=== PATIENT | male | born 1940 | race Caucasian/White ===

== ENCOUNTER 2023-07-20 12:30 | Inpatient (IN) | payer MEDICARE ==
[~2023-07-20] VITALS: Ht 170.2 cm; Wt 58.1 kg
[2023-07-20 13:24] LABS: BASOPHILS % (AUTO) 0.2 % (0.0-2.0); EOSINOPHILS # (AUTO) 0.1 K/uL (0.0-0.7); EOSINOPHILS % (AUTO) 0.7 % (0.0-6.0); HEMATOCRIT 30 % (39-51); HEMOGLOBIN 9.8 g/dL (13.5-17.5); LYMPHOCYTES # (AUTO) 1.1 K/uL (0.8-4.8); LYMPHOCYTES % (AUTO) 7.4 % (20.0-44.0); MEAN CORPUSCULAR HEMOGLOBIN 31 PG (26.0-33.0); MEAN CORPUSCULAR HGB CONC 33 g/dl (31.0-36.0); MEAN CORPUSCULAR VOLUME 92 fL (80-96); MONOCYTES # (AUTO) 0.5 K/uL (0.1-1.30); MONOCYTES % (AUTO) 3.7 % (2.0-12.0); NEUTROPHILS # (AUTO) 12.5 K/uL (1.8-8.9); PLATELET COUNT (AUTO) 321 K/uL (150-450); RED BLOOD CELL COUNT(AUTO) 3.21 MIL/uL (4.5-6.0); RED CELL DISTRIBUTION WIDTH 14.8 % (11.5-15.0); WHITE BLOOD COUNT (AUTO) 14.2 K/uL (4.3-11.0)
[2023-07-20 13:27] LABS: CALCIUM, SERUM 9.2 mg/dL (8.5-10.1); CARBON DIOXIDE 25 mmol/L (21-32); CHLORIDE 99 mmol/L (98-107); CREATININE 1.8 mg/dL (0.6-1.3); GLUCOSE 154 mg/dL (74-106); SODIUM SERUM 132 mmol/L (136-145); UREA NITROGEN, BLOOD 41 mg/dL (7-18)
[2023-07-20 13:33] LABS: ALANINE AMINOTRANSFERASE 173 U/L (12-78); ALBUMIN 2.1 g/dL (3.4-5.0); ALKALINE PHOSPHATASE 492 U/L (46-116); ASPARTATE AMINOTRANSFERASE 310 U/L (15-37); BILIRUBIN,TOTAL 0.7 mg/dL (0.2-1.0)
[2023-07-20 13:47] LABS: APPEARANCE,URINE CLEAR (CLEAR); BILIRUBIN,URINE NEGATIVE (NEGATIVE); BLOOD, URINE TRACE-INTA Ery/uL (NEGATIVE); COLOR,URINE YELLOW (YELLOW); KETONES,URINE NEGATIVE (NEGATIVE); LEUKOCYTE ESTERASE ,URINE NEGATIVE (NEGATIVE); NITRITE, URINE NEGATIVE (NEGATIVE); PH,URINE 5.5 (5.0-8.0); PROTEIN,URINE 1+ mg/dl (NEGATIVE); UGLUCOSE NEGATIVE (NEGATIVE)
[2023-07-20] MEDS ORDERED: TRUEPLUS GLUCOSE PO (13:47)
[2023-07-20] MEDS ORDERED: CITR473S4 PO (13:47)
[2023-07-20] MEDS ORDERED: ATOR40TA PO (13:47)
[2023-07-20] MEDS ORDERED: ACET-2605 PO ×2 (13:47)
[2023-07-20] MEDS ORDERED: LATA7.5D EACHEYE (13:47)
[2023-07-20] MEDS ORDERED: DOCU100T2 PO (13:47)
[2023-07-20] MEDS ORDERED: PANT40TA2 PO (13:47)
[2023-07-20] MEDS ORDERED: INSU100I26 SQ (13:47)
[2023-07-20] MEDS ORDERED: HEPA500014 SQ (13:47)
[2023-07-20] MEDS ORDERED: MAGN400O6 PO (13:47)
[2023-07-20] MEDS ORDERED: LINA5TAB PO (13:47)
[2023-07-20] MEDS ORDERED: NITR0.4T48 SL (13:47)
[2023-07-20] MEDS ORDERED: INSU100V42 SQ (13:47)
[2023-07-20] MEDS ORDERED: ONDA-97 PO (13:47)
[2023-07-20] MEDS ORDERED: SERT50TA PO (13:47)
[2023-07-20] MEDS ORDERED: ASCO-340 PO (13:47)
[2023-07-20] MEDS ORDERED: CRAN425C6 PO (13:47)
[2023-07-20] MEDS ORDERED: GLUC1KIT IM (13:47)
[2023-07-20] MEDS ORDERED: ASPI-1100 PO (13:47)
[2023-07-20] MEDS ORDERED: ACET-868 PO ×2 (13:47)
[2023-07-20] MEDS ORDERED: INSU100I47 SQ (13:47)
[2023-07-20] MEDS ORDERED: SEMA1PEN SQ (13:47)
[2023-07-20] MEDS ORDERED: METO25TA6 PO (13:47)
[2023-07-20] MEDS ORDERED: CHOL100043 PO (13:47)
[2023-07-20] MEDS ORDERED: NUT.237L67 PO (13:47)
[2023-07-20] MEDS ORDERED: MULT-447 PO (13:47)
[2023-07-20 13:50] LABS: ADD URINE CULTURE NO; BACTERIA,URINE Rare /HPF (None Seen); RBC,URINE 0-2 /HPF (0-2); SQUAMOUS EPITHELIAL CELL,UR Rare /HPF (None Seen); WBC,URINE 0-2 /HPF (0-3)
[2023-07-20] MEDS: PIPERACILLIN /TAZOBACTAM 3.375 G in IV D5W 50 ML IV ONE (15:00)
[2023-07-20] MEDS: AZITHROMYCIN 500 MG in IV D5W 250 ML IV ONE (15:00)
[2023-07-20] MEDS: VANCOMYCIN 1 GM in IV D5W 250 ML IV ONE (15:00)
[2023-07-20] MEDS ORDERED: MAG HYDROX/AL HYDROX/SIMETH 30 ML UDC PO PRN (15:30)
[2023-07-20] MEDS ORDERED: ACETAMINOPHEN 325 MG TABLET PO PRN (15:30)
[2023-07-20] MEDS ORDERED: Z GUARD REMEDY 4 OZ OINT TP PRN (15:30)
[2023-07-20] MEDS ORDERED: ONDANSETRON HCL/PF 4 MG/2 ML VIAL IVP PRN (15:30)
[2023-07-20] MEDS ORDERED: MAGNESIUM HYDROXIDE 30 ML UDC PO PRN (15:30)
[2023-07-20] MEDS ORDERED: DEXTROSE 50%-WATER 50 ML DISP.SYRIN IV PRN (16:00)
[2023-07-20] MEDS ORDERED: DOCUSATE SODIUM 100 MG CAPSULE PO PRN (16:30)
[2023-07-20] MEDS ORDERED: METOPROLOL TARTRATE 25 MG TABLET ONE ×3 (16:48→16:53)
[2023-07-20] MEDS: METOPROLOL TARTRATE 25 MG TABLET PO SCH (16:55)
[2023-07-20] MEDS: BLOOD SUGAR DIAGNOSTIC 1 EACH STRIP VI SCH (17:03)
[2023-07-20] MEDS: INSULIN REGULAR, HUMAN 100 UNIT/ML 3 ML VIAL SQ PRN (17:36)
[2023-07-20] MEDS: IV NS 0.9% 1,000 ML IV PRN (17:44)
[2023-07-20] MEDS: CEFEPIME 1 GM in IV D5W 50 ML IV SCH (19:34)
[2023-07-20] MEDS: HEPARIN SODIUM, PORCINE 5000 UNITS/1 ML VIAL SQ SCH (21:00)
[2023-07-20] MEDS: SERTRALINE HCL 50 MG TABLET PO SCH (21:56)
[2023-07-20] MEDS: INSULIN GLARGINE, 100 UNIT/ML CARTRIDGE SQ SCH (22:00)
[2023-07-21 04:00] VITALS: BP 136/49; TEMP 97.9; O2SAT 96
[2023-07-21 08:00] VITALS: BP 130/43; TEMP 98.1; O2SAT 98
[2023-07-21] MEDS: ASPIRIN EC 325 MG TABLET.DR PO SCH (09:00)
[2023-07-21] MEDS: PANTOPRAZOLE 40 MG TABLET.DR PO SCH (10:12)
[2023-07-21 16:00] VITALS: BP 133/75; TEMP 98.4; O2SAT 98
[2023-07-21 16:15] LABS: CREATININE, URINE 88.4 MG/DL (30.0-125.0); URINE TOTAL PROTEIN 65.8 mg/dL (0-11.9)
[2023-07-21 16:32] LABS: APPEARANCE,URINE CLEAR (CLEAR); BILIRUBIN,URINE NEGATIVE (NEGATIVE); BLOOD, URINE TRACE-INTA Ery/uL (NEGATIVE); COLOR,URINE YELLOW (YELLOW); KETONES,URINE TRACE mg/dL (NEGATIVE); LEUKOCYTE ESTERASE ,URINE NEGATIVE (NEGATIVE); NITRITE, URINE NEGATIVE (NEGATIVE); PH,URINE 5.5 (5.0-8.0); PROTEIN,URINE TRACE mg/dl (NEGATIVE); UGLUCOSE TRACE mg/dL (NEGATIVE); UROBILINOGEN,URINE 0.2 EU/dL (0.2)
[2023-07-21 16:53] LABS: RBC,URINE 0-2 /HPF (0-2)
[2023-07-21 16:54] LABS: ADD URINE CULTURE NO; BACTERIA,URINE Few /HPF (None Seen); SQUAMOUS EPITHELIAL CELL,UR Few /HPF (None Seen); WBC,URINE 0-2 /HPF (0-3)
[2023-07-21 16:55] LABS: EOSINOPHIL,URINE None Seen; URIC ACID CRYSTALS,URINE Moderate /HPF (None Seen)
[2023-07-21 20:00] VITALS: BP 126/42; TEMP 98.2; O2SAT 98
[2023-07-21] MEDS: *INSULIN REGULAR(HUMULIN R)HUM 100 UNIT/ML VIAL SQ PRN (21:44)
[2023-07-22] VITALS: BP 126/42; TEMP 98.2; O2SAT 98
[2023-07-22 04:00] VITALS: BP 94/67; TEMP 97.9; O2SAT 96
[2023-07-22 06:52] LABS: BASOPHILS % (AUTO) 0.3 % (0.0-2.0); EOSINOPHILS # (AUTO) 0.2 K/uL (0.0-0.7); EOSINOPHILS % (AUTO) 1.7 % (0.0-6.0); HEMATOCRIT 28 % (39-51); HEMOGLOBIN 9.2 g/dL (13.5-17.5); LYMPHOCYTES # (AUTO) 0.9 K/uL (0.8-4.8); LYMPHOCYTES % (AUTO) 8.2 % (20.0-44.0); MEAN CORPUSCULAR HEMOGLOBIN 31 PG (26.0-33.0); MEAN CORPUSCULAR HGB CONC 33 g/dl (31.0-36.0); MEAN CORPUSCULAR VOLUME 92 fL (80-96); MONOCYTES # (AUTO) 0.4 K/uL (0.1-1.30); MONOCYTES % (AUTO) 3.8 % (2.0-12.0); NEUTROPHILS # (AUTO) 9.5 K/uL (1.8-8.9); PLATELET COUNT (AUTO) 338 K/uL (150-450); RED BLOOD CELL COUNT(AUTO) 3.02 MIL/uL (4.5-6.0); RED CELL DISTRIBUTION WIDTH 14.4 % (11.5-15.0); WHITE BLOOD COUNT (AUTO) 11.1 K/uL (4.3-11.0)
[2023-07-22 06:58] LABS: ALANINE AMINOTRANSFERASE 107 U/L (12-78); ALBUMIN 1.7 g/dL (3.4-5.0); ALKALINE PHOSPHATASE 378 U/L (46-116); ASPARTATE AMINOTRANSFERASE 114 U/L (15-37); BILIRUBIN,TOTAL 0.4 mg/dL (0.2-1.0); CALCIUM, SERUM 8.5 mg/dL (8.5-10.1); CARBON DIOXIDE 23 mmol/L (21-32); CHLORIDE 103 mmol/L (98-107); CREATININE 1.4 mg/dL (0.6-1.3); GLUCOSE 148 mg/dL (74-106); MAGNESIUM 1.9 mg/dL (1.8-2.4); PHOSPHORUS 2.7 mg/dL (2.5-4.9); SODIUM SERUM 133 mmol/L (136-145); TOTAL PROTEIN, SERUM 6.6 g/dL (6.4-8.2); UREA NITROGEN, BLOOD 24 mg/dL (7-18)
[2023-07-22 07:01] LABS: ALBUMIN 1.7 g/dL (3.4-5.0); BILIRUBIN,DIRECT 0.2 mg/dL (0.0-0.2); BILIRUBIN,TOTAL 0.4 mg/dL (0.2-1.0); TOTAL PROTEIN, SERUM 6.8 g/dL (6.4-8.2)
[2023-07-22 07:02] LABS: CREATINE KINASE, TOTAL 88 U/L (39-308)
[2023-07-22 08:00] VITALS: BP 133/56; TEMP 98.1; O2SAT 99
[2023-07-22 16:00] VITALS: BP 140/57; TEMP 98.2; O2SAT 99
[2023-07-23 02:09] LABS: PTH, INTACT 18 pg/mL (15-65)
[2023-07-23 07:13] LABS: BASOPHILS % (AUTO) 0.4 % (0.0-2.0); EOSINOPHILS # (AUTO) 0.3 K/uL (0.0-0.7); EOSINOPHILS % (AUTO) 2.9 % (0.0-6.0); HEMATOCRIT 28 % (39-51); HEMOGLOBIN 9.6 g/dL (13.5-17.5); LYMPHOCYTES # (AUTO) 0.9 K/uL (0.8-4.8); LYMPHOCYTES % (AUTO) 9.2 % (20.0-44.0); MEAN CORPUSCULAR HEMOGLOBIN 32 PG (26.0-33.0); MEAN CORPUSCULAR HGB CONC 35 g/dl (31.0-36.0); MEAN CORPUSCULAR VOLUME 91 fL (80-96); MONOCYTES # (AUTO) 0.5 K/uL (0.1-1.30); NEUTROPHILS # (AUTO) 7.7 K/uL (1.8-8.9); NEUTROPHILS % (AUTO) 82.5 % (43.0-81.0); PLATELET COUNT (AUTO) 403 K/uL (150-450); RED BLOOD CELL COUNT(AUTO) 3.05 MIL/uL (4.5-6.0); RED CELL DISTRIBUTION WIDTH 14.3 % (11.5-15.0); WHITE BLOOD COUNT (AUTO) 9.4 K/uL (4.3-11.0)
[2023-07-23 07:34] LABS: CALCIUM, SERUM 8.9 mg/dL (8.5-10.1); CARBON DIOXIDE 23 mmol/L (21-32); CHLORIDE 102 mmol/L (98-107); CREATININE 1.5 mg/dL (0.6-1.3); GLUCOSE 130 mg/dL (74-106); POTASSIUM 3.9 mmol/L (3.5-5.1); SODIUM SERUM 134 mmol/L (136-145); UREA NITROGEN, BLOOD 21 mg/dL (7-18)
[2023-07-23 09:08] LABS: *SPE A/G RATIO 0.5 (0.7-1.7); *SPE ALPHA-1-GLOBULIN 0.4 g/dL (0.0-0.4); *SPE ALPHA-2-GLOBULIN 1.1 g/dL (0.4-1.0); *SPE GLOBULIN, TOTAL 3.9 g/dL (2.2-3.9); *SPE M-SPIKE 0.6 g/dL (Not Observed); *SPE PROTEIN TOTAL 5.9 g/dL (6.0-8.5); *SPEGAMMA GLOBULIN 1.4 g/dL (0.4-1.8)
[2023-07-23 20:00] VITALS: BP 109/52; TEMP 97.9; O2SAT 99
[2023-07-24 04:00] VITALS: BP 112/72; TEMP 97.9; O2SAT 100
[2023-07-24 08:00] VITALS: BP 117/60; TEMP 97.7; O2SAT 98
[2023-07-24 09:06] VITALS: BP 117/60
[2023-07-24] MEDS ORDERED: LEVO500T90 PO (10:09)
== END 2023-07-24 15:14 | DRG 177 ==
LOC: ER 12:35 → TELE1 17:44 → MEDSG1 07-21 03:59
PROVIDERS: ADMIT Internal Medicine; ATTEND Internal Medicine
DX: J15.69 Pneumonia due to other Gram-negative bacteria (principal); G93.41 Metabolic encephalopathy; N17.0 Acute kidney failure with tubular necrosis; E44.0 Moderate protein-calorie malnutrition; N18.4 Chronic kidney disease, stage 4 (severe); E87.1 Hypo-osmolality and hyponatremia; J98.11 Atelectasis; F03.93 Unspecified dementia, unspecified severity, with mood disturbance; I12.9 Hypertensive chronic kidney disease with stage 1 through stage 4 chronic kidney disease, or unspecified chronic kidney disease; D64.9 Anemia, unspecified; E78.5 Hyperlipidemia, unspecified; E86.1 Hypovolemia; E11.22 Type 2 diabetes mellitus with diabetic chronic kidney disease; K21.9 Gastro-esophageal reflux disease without esophagitis; M89.8X9 Other specified disorders of bone, unspecified site; E88.09 Other disorders of plasma-protein metabolism, not elsewhere classified; Z68.20 Body mass index [BMI] 20.0-20.9, adult; Z20.822 Contact with and (suspected) exposure to COVID-19; R74.01 Elevation of levels of liver transaminase levels; F32.9 Major depressive disorder, single episode, unspecified; K82.8 Other specified diseases of gallbladder; R79.89 Other specified abnormal findings of blood chemistry
CPT/HCPCS: 36415; 71045-TC; 76700-TC; 80048-TC; 80053-TC; 80076-TC; 81001; 82550-TC; 82570-TC; 82962-TC; 83735-TC; 83970; 84100-TC; 84155; 84165; 84300-TC; 85025-TC; A4223; G0378; J0692; J1644; J1815; J2543; J3370; J7030; J7060

== ENCOUNTER 2023-07-26 09:44 | Inpatient (IN) | payer MEDICARE ==
[~2023-07-26] VITALS: Ht 160 cm; Wt 61.2 kg
[~2023-07-26 09:44] MED LIST: ACET-2605 PO; ACET-868 PO; ASCO-340 PO; ASPI-1100 PO; ATOR40TA PO; CHOL100043 PO; CITR473S4 PO; CRAN425C6 PO; DOCU100T2 PO; GLUC1KIT IM; HEPA500014 SQ; INSU100I26 SQ; INSU100I47 SQ; INSU100V42 SQ; LATA7.5D EACHEYE; LEVO500T90 PO; LINA5TAB PO; MAGN400O6 PO; METO25TA6 PO; MULT-447 PO; NITR0.4T48 SL; NUT.237L67 PO; ONDA-97 PO; PANT40TA2 PO; SEMA1PEN SQ; SERT50TA PO; TRUEPLUS GLUCOSE PO
[2023-07-26 10:38] LABS: BASOPHILS # (AUTO) 0.1 K/uL (0.0-0.2); BASOPHILS % (AUTO) 1.1 % (0.0-2.0); EOSINOPHILS # (AUTO) 0.2 K/uL (0.0-0.7); HEMATOCRIT 29 % (39-51); HEMOGLOBIN 9.9 g/dL (13.5-17.5); LYMPHOCYTES # (AUTO) 1.4 K/uL (0.8-4.8); LYMPHOCYTES % (AUTO) 15.5 % (20.0-44.0); MEAN CORPUSCULAR HEMOGLOBIN 31 PG (26.0-33.0); MEAN CORPUSCULAR HGB CONC 34 g/dl (31.0-36.0); MEAN CORPUSCULAR VOLUME 90 fL (80-96); MONOCYTES # (AUTO) 0.5 K/uL (0.1-1.30); MONOCYTES % (AUTO) 5.2 % (2.0-12.0); NEUTROPHILS % (AUTO) 76.2 % (43.0-81.0); PLATELET COUNT (AUTO) 484 K/uL (150-450); RED BLOOD CELL COUNT(AUTO) 3.24 MIL/uL (4.5-6.0); RED CELL DISTRIBUTION WIDTH 14.7 % (11.5-15.0); WHITE BLOOD COUNT (AUTO) 9.2 K/uL (4.3-11.0)
[2023-07-26 10:42] LABS: CALCIUM, SERUM 9.1 mg/dL (8.5-10.1); CARBON DIOXIDE 26 mmol/L (21-32); CHLORIDE 102 mmol/L (98-107); CREATININE 2.3 mg/dL (0.6-1.3); GLUCOSE 82 mg/dL (74-106); POTASSIUM 3.9 mmol/L (3.5-5.1); SODIUM SERUM 136 mmol/L (136-145); UREA NITROGEN, BLOOD 29 mg/dL (7-18)
[2023-07-26 10:57] VITALS: O2SAT 100
[2023-07-26] MEDS ORDERED: LEVO500T90 PO (11:38)
[2023-07-26] MEDS ORDERED: PETR113O TP (11:38)
[2023-07-26] MEDS ORDERED: [UNRECOGNIZED DRUG - OTHER] TP (11:38)
[2023-07-26 12:00] VITALS: BP 151/61; TEMP 97.2; O2SAT 99
[2023-07-26] MEDS: IV NS 0.9% 1,000 ML BAG IV ONE (12:06)
[2023-07-26 16:00] VITALS: BP 145/74; TEMP 98.2; O2SAT 100
[2023-07-26] MEDS ORDERED: MAG HYDROX/AL HYDROX/SIMETH 30 ML UDC PO PRN (16:00)
[2023-07-26] MEDS ORDERED: Z GUARD REMEDY 4 OZ OINT TP PRN (16:00)
[2023-07-26] MEDS ORDERED: ONDANSETRON HCL/PF 4 MG/2 ML VIAL IVP PRN (16:00)
[2023-07-26] MEDS ORDERED: ACETAMINOPHEN 325 MG TABLET PO PRN ×3 (16:00→18:30)
[2023-07-26] MEDS ORDERED: MAGNESIUM HYDROXIDE 30 ML UDC PO PRN ×2 (16:00→18:30)
[2023-07-26] MEDS ORDERED: ZOLPIDEM TARTRATE 5 MG TABLET PO PRN (16:00)
[2023-07-26] MEDS: IV 1/2NS 1000 ML 1,000 ML IV PRN (16:44)
[2023-07-26] MEDS ORDERED: NITROGLYCERIN 0.4 MG/TAB BOTTLE SL PRN (18:30)
[2023-07-26] MEDS ORDERED: TRUEPLUS GLUCOSE PO PRN (18:30)
[2023-07-26] MEDS ORDERED: ACETAMINOPHEN ES 500 MG TABLET PO PRN (18:30)
[2023-07-26] MEDS ORDERED: Medication Not On Formulary EA (Semaglutide (Ozempic) 1 MG) SQ SCH (18:30)
[2023-07-26] MEDS ORDERED: ONDANSETRON 4 MG TAB.RAPDIS PO PRN (19:00)
[2023-07-26] MEDS ORDERED: DOCUSATE SODIUM 100 MG CAPSULE PO PRN (19:00)
[2023-07-26] MEDS: HEPARIN SODIUM, PORCINE 5000 UNITS/1 ML VIAL SQ SCH (19:11)
[2023-07-26] MEDS: INSULIN ASPART/LISPRO 100 UNIT/ML CARTRIDGE SQ SCH (20:01)
[2023-07-26] MEDS ORDERED: GLUCAGON,HUMAN RECOMBINANT 1 MG/VIAL VIAL IM PRN (21:00)
[2023-07-26] MEDS ORDERED: HEPARIN SODIUM, PORCINE 5000 UNITS/1 ML VIAL SQ SCH (21:00)
[2023-07-26] MEDS: SERTRALINE HCL 50 MG TABLET PO SCH (21:56)
[2023-07-26] MEDS: ATORVASTATIN 40 MG TABLET PO SCH (21:56)
[2023-07-26] MEDS: LATANOPROST EYE DROP 0.005% 2.5 ML BOTTLE EACHEYE SCH (21:56)
[2023-07-26] MEDS: INSULIN GLARGINE, 100 UNIT/ML CARTRIDGE SQ SCH (22:00)
[2023-07-27] MEDS ORDERED: PANTOPRAZOLE 40 MG TABLET.DR PO SCH (07:30)
[2023-07-27 07:32] LABS: BASOPHILS # (AUTO) 0.1 K/uL (0.0-0.2); BASOPHILS % (AUTO) 0.9 % (0.0-2.0); EOSINOPHILS # (AUTO) 0.2 K/uL (0.0-0.7); EOSINOPHILS % (AUTO) 3.1 % (0.0-6.0); HEMATOCRIT 25 % (39-51); HEMOGLOBIN 8.6 g/dL (13.5-17.5); LYMPHOCYTES # (AUTO) 1.4 K/uL (0.8-4.8); MEAN CORPUSCULAR HEMOGLOBIN 31 PG (26.0-33.0); MEAN CORPUSCULAR HGB CONC 34 g/dl (31.0-36.0); MEAN CORPUSCULAR VOLUME 91 fL (80-96); MONOCYTES # (AUTO) 0.4 K/uL (0.1-1.30); NEUTROPHILS # (AUTO) 5.2 K/uL (1.8-8.9); PLATELET COUNT (AUTO) 407 K/uL (150-450); RED BLOOD CELL COUNT(AUTO) 2.73 MIL/uL (4.5-6.0); RED CELL DISTRIBUTION WIDTH 14.4 % (11.5-15.0); WHITE BLOOD COUNT (AUTO) 7.3 K/uL (4.3-11.0)
[2023-07-27 07:49] LABS: CALCIUM, SERUM 8.5 mg/dL (8.5-10.1); CARBON DIOXIDE 23 mmol/L (21-32); CHLORIDE 105 mmol/L (98-107); CREATININE 1.6 mg/dL (0.6-1.3); GLUCOSE 75 mg/dL (74-106); MAGNESIUM 1.6 mg/dL (1.8-2.4); PHOSPHORUS 2.8 mg/dL (2.5-4.9); POTASSIUM 3.6 mmol/L (3.5-5.1); SODIUM SERUM 136 mmol/L (136-145); UREA NITROGEN, BLOOD 23 mg/dL (7-18)
[2023-07-27 08:44] LABS: THYROID STIMULATING HORMONE 3.025 uIU/mL (0.358-3.74)
[2023-07-27] MEDS: CITRIC ACID/SODIUM CITRATE (BICITRA)15 ML UDC PO SCH (09:00)
[2023-07-27] MEDS ORDERED: Medication Not On Formulary EA (Cranberry Extract (Cranberry) 425 MG) PO SCH (09:00)
[2023-07-27] MEDS: ASPIRIN EC 325 MG TABLET.DR PO SCH (09:08)
[2023-07-27 09:09] VITALS: BP 151/64
[2023-07-27] MEDS: MULTIVIT W/MINERALS 1 TAB TABLET PO SCH (09:09)
[2023-07-27] MEDS: CHOLECALCIFEROL (VITAMIN D 3) 400 UNIT TABLET PO SCH (09:09)
[2023-07-27] MEDS: METOPROLOL TARTRATE 25 MG TABLET PO SCH (09:09)
[2023-07-27] MEDS: ASCORBIC ACID 500 MG TABLET PO SCH (09:09)
[2023-07-27] MEDS: PANTOPRAZOLE 40 MG TABLET.DR PO SCH (09:10)
[2023-07-27] MEDS: LINAGLIPTIN 5 MG TABLET PO SCH (09:10)
[2023-07-27] MEDS: HEPARIN SODIUM, PORCINE 5000 UNITS/1 ML VIAL SQ SCH (09:14)
[2023-07-27] MEDS: ACETAMINOPHEN ES 500 MG TABLET PO SCH (09:16)
[2023-07-27] MEDS: NEPRO VAN 237 ML CAN PO SCH (09:17)
[2023-07-27] MEDS: MAGNESIUM OXIDE 400 MG TABLET PO ONE (09:25)
[2023-07-27 10:37] LABS: BASOPHILS % (MANUAL) 0 % (0.0-2.0); EOSINOPHILS % (MANUAL) 1 % (0-4); LYMPHOCYTES % (MANUAL) 12 % (16-48); MONOCYTES % (MANUAL) 7 % (0-11.0); NEUTROPHILS % (MANUAL) 80 (42-76)
[2023-07-27 10:38] LABS: ANISOCYTOSIS 1+; PLATELET ESTIMATE ADEQUATE
[2023-07-27] MEDS ORDERED: LEVOFLOXACIN (500MG) 500 MG TABLET PO SCH (21:00)
== END 2023-07-27 13:45 | DRG 682 ==
LOC: ER 09:48 → TELE 12:05
PROVIDERS: ADMIT Student in an Organized Health Care Education/Training Program; ATTEND Internal Medicine
DX: N17.9 Acute kidney failure, unspecified (principal); G93.41 Metabolic encephalopathy; J15.69 Pneumonia due to other Gram-negative bacteria; E44.0 Moderate protein-calorie malnutrition; J98.11 Atelectasis; F03.93 Unspecified dementia, unspecified severity, with mood disturbance; I12.9 Hypertensive chronic kidney disease with stage 1 through stage 4 chronic kidney disease, or unspecified chronic kidney disease; D64.9 Anemia, unspecified; D72.829 Elevated white blood cell count, unspecified; E11.22 Type 2 diabetes mellitus with diabetic chronic kidney disease; E78.5 Hyperlipidemia, unspecified; E83.42 Hypomagnesemia; E86.1 Hypovolemia; E88.09 Other disorders of plasma-protein metabolism, not elsewhere classified; F32.9 Major depressive disorder, single episode, unspecified; K21.9 Gastro-esophageal reflux disease without esophagitis; M89.8X9 Other specified disorders of bone, unspecified site; N18.4 Chronic kidney disease, stage 4 (severe); R29.6 Repeated falls; Z87.01 Personal history of pneumonia (recurrent); R74.01 Elevation of levels of liver transaminase levels; S01.91XA Laceration without foreign body of unspecified part of head, initial encounter; W18.30XA Fall on same level, unspecified, initial encounter; Y92.129 Unspecified place in nursing home as the place of occurrence of the external cause; Z79.4 Long term (current) use of insulin; Z68.23 Body mass index [BMI] 23.0-23.9, adult
CPT/HCPCS: 36415; 70450-TC; 71045-TC; 72125-TC; 80048-TC; 82962-TC; 83735-TC; 84100-TC; 84443-TC; 84484-TC; 85025-TC; 87081-TC; 97112-TC; 97116-TC; 97530-TC; G0378; J1644; J1815; J3490; J7030

== ENCOUNTER 2023-09-11 20:00 | Emergency (ER) | payer MEDICARE, OTHER ==
[~2023-09-11] VITALS: Ht 160 cm; Wt 61.2 kg
[~2023-09-11 20:00] MED LIST changes: -LEVO500T90 PO; +PETR113O TP; +[UNRECOGNIZED DRUG - OTHER] TP
[2023-09-11 21:15] LABS: BASOPHILS # (AUTO) 0.1 K/uL (0.0-0.2); BASOPHILS % (AUTO) 0.9 % (0.0-2.0); EOSINOPHILS # (AUTO) 0.6 K/uL (0.0-0.7); EOSINOPHILS % (AUTO) 7.1 % (0.0-6.0); HEMATOCRIT 28 % (39-51); HEMOGLOBIN 9.7 g/dL (13.5-17.5); LYMPHOCYTES % (AUTO) 24.8 % (20.0-44.0); MEAN CORPUSCULAR HEMOGLOBIN 32 PG (26.0-33.0); MEAN CORPUSCULAR HGB CONC 34 g/dl (31.0-36.0); MEAN CORPUSCULAR VOLUME 94 fL (80-96); MONOCYTES # (AUTO) 0.7 K/uL (0.1-1.30); MONOCYTES % (AUTO) 8.6 % (2.0-12.0); NEUTROPHILS # (AUTO) 4.7 K/uL (1.8-8.9); NEUTROPHILS % (AUTO) 58.6 % (43.0-81.0); PLATELET COUNT (AUTO) 223 K/uL (150-450); RED BLOOD CELL COUNT(AUTO) 3.02 MIL/uL (4.5-6.0); RED CELL DISTRIBUTION WIDTH 16.7 % (11.5-15.0)
[2023-09-11 22:07] LABS: CALCIUM, SERUM 8.8 mg/dL (8.5-10.1); CARBON DIOXIDE 25 mmol/L (21-32); CHLORIDE 101 mmol/L (98-107); CREATININE 1.9 mg/dL (0.6-1.3); GLUCOSE 178 mg/dL (74-106); POTASSIUM 4.5 mmol/L (3.5-5.1); SODIUM SERUM 136 mmol/L (136-145); UREA NITROGEN, BLOOD 28 mg/dL (7-18)
[2023-09-11 22:19] LABS: ALANINE AMINOTRANSFERASE 23 U/L (12-78); ALBUMIN 3.2 g/dL (3.4-5.0); ALKALINE PHOSPHATASE 144 U/L (46-116); ASPARTATE AMINOTRANSFERASE 22 U/L (15-37); BILIRUBIN,DIRECT 0.1 mg/dL (0.0-0.2); BILIRUBIN,TOTAL 0.4 mg/dL (0.2-1.0); NT-PRO BNP 291 pg/mL (0-125); TOTAL PROTEIN, SERUM 7.5 g/dL (6.4-8.2)
[2023-09-11 23:10] LABS: LACTIC ACID 2.2 mmol/L (0.4-2.0)
[2023-09-12] MEDS: IV NS 0.9% 1,000 ML IV ONE (00:30)
[2023-09-12 07:28] VITALS: BP 120/66; TEMP 98.5; O2SAT 99
== END 2023-09-12 07:29 ==
LOC: ER 20:13
DX: E86.0 Dehydration (principal); F03.90 Unspecified dementia, unspecified severity, without behavioral disturbance, psychotic disturbance, mood disturbance, and anxiety; I12.9 Hypertensive chronic kidney disease with stage 1 through stage 4 chronic kidney disease, or unspecified chronic kidney disease; E11.22 Type 2 diabetes mellitus with diabetic chronic kidney disease; N18.9 Chronic kidney disease, unspecified; W19.XXXA Unspecified fall, initial encounter; Y93.89 Activity, other specified; Y92.89 Other specified places as the place of occurrence of the external cause; Y99.8 Other external cause status
CPT/HCPCS: 36415; 70450-TC; 71045-TC; 72125-TC; 72170-TC; 80053-TC; 80076-TC; 83605-TC; 83880; 84484-TC; 85025-TC; 87040-TC

== ENCOUNTER 2024-12-11 11:53 | Inpatient (IN) | payer MEDICARE, OTHER ==
[~2024-12-11] VITALS: Ht 154.9 cm; Wt 74.4 kg
[2024-12-11] MEDS: IV NS 0.9% 1,000 ML BAG IV ONE (12:31)
[2024-12-11 12:32] LABS: BASOPHILS # (AUTO) 0.1 K/uL (0.0-0.2); EOSINOPHILS # (AUTO) 0.4 K/uL (0.0-0.7); EOSINOPHILS % (AUTO) 5.2 % (0.0-6.0); HEMATOCRIT 34 % (39-51); HEMOGLOBIN 11.4 g/dL (13.5-17.5); LYMPHOCYTES # (AUTO) 2.2 K/uL (0.8-4.8); LYMPHOCYTES % (AUTO) 29.3 % (20.0-44.0); MEAN CORPUSCULAR HEMOGLOBIN 32 PG (26.0-33.0); MEAN CORPUSCULAR HGB CONC 34 g/dl (31.0-36.0); MEAN CORPUSCULAR VOLUME 93 fL (80-96); MONOCYTES # (AUTO) 0.6 K/uL (0.1-1.30); MONOCYTES % (AUTO) 8.1 % (2.0-12.0); NEUTROPHILS # (AUTO) 4.3 K/uL (1.8-8.9); NEUTROPHILS % (AUTO) 56.4 % (43.0-81.0); PLATELET COUNT (AUTO) 202 K/uL (150-450); RED BLOOD CELL COUNT(AUTO) 3.63 MIL/uL (4.5-6.0); RED CELL DISTRIBUTION WIDTH 14.2 % (11.5-15.0); WHITE BLOOD COUNT (AUTO) 7.6 K/uL (4.3-11.0)
[2024-12-11 12:41] LABS: CALCIUM, SERUM 9.1 mg/dL (8.5-10.1); CARBON DIOXIDE 24 mmol/L (21-32); CHLORIDE 101 mmol/L (98-107); CREATININE 2.6 mg/dL (0.6-1.3); GLUCOSE 340 mg/dL (74-106); SODIUM SERUM 132 mmol/L (136-145); UREA NITROGEN, BLOOD 49 mg/dL (7-18)
[2024-12-11] MEDS: CEFEPIME 1 GM in IV D5W 50 ML IV ONE (12:45)
[2024-12-11] MEDS ORDERED: CRAN300T PO (12:46)
[2024-12-11] MEDS ORDERED: METO50TA16 PO (12:46)
[2024-12-11 12:47] LABS: ALANINE AMINOTRANSFERASE 41 U/L (12-78); ALBUMIN 3.6 g/dL (3.4-5.0); ALKALINE PHOSPHATASE 216 U/L (46-116); ASPARTATE AMINOTRANSFERASE 24 U/L (15-37); BILIRUBIN,DIRECT 0.1 mg/dL (0.0-0.2); BILIRUBIN,TOTAL 0.4 mg/dL (0.2-1.0); INR 0.96 (0.91-1.10); PARTIAL THROMBOPLASTIN TIME 24.5 SEC (24.3-34.3); PROTHROMBIN TIME 9.9 SECS (9.2-11.1); TOTAL PROTEIN, SERUM 8.6 g/dL (6.4-8.2)
[2024-12-11] MEDS ORDERED: FOLI0.8T3 PO (12:47)
[2024-12-11] MEDS ORDERED: SERT25TA5 PO (12:47)
[2024-12-11] MEDS ORDERED: FERR325T28 PO (12:47)
[2024-12-11] MEDS: VANCOMYCIN 1 GM in IV D5W 250 ML IV ONE (12:54)
[2024-12-11 13:04] LABS: LACTIC ACID 1.3 mmol/L (0.4-2.0)
[2024-12-11] MEDS ORDERED: Z GUARD REMEDY 4 OZ OINT TP PRN (14:30)
[2024-12-11] MEDS ORDERED: HYDROCODONE/APAP 5/325MG TABLET PO PRN (14:30)
[2024-12-11] MEDS ORDERED: ONDANSETRON HCL/PF 4 MG/2 ML VIAL IVP PRN (14:30)
[2024-12-11] MEDS ORDERED: DEXTROSE 50%-WATER 50 ML DISP.SYRIN IV PRN (14:30)
[2024-12-11] MEDS ORDERED: DOCUSATE SODIUM 100 MG CAPSULE PO PRN (14:30)
[2024-12-11] MEDS ORDERED: ACETAMINOPHEN 325 MG TABLET PO PRN (14:30)
[2024-12-11] MEDS: IV NS 0.9% 1,000 ML IV PRN (15:00)
[2024-12-11 16:00] VITALS: BP 147/55; TEMP 97.3; O2SAT 100
[2024-12-11 16:23] VITALS: BP 147/55; TEMP 97.3; O2SAT 100
[2024-12-11] MEDS: FERROUS SULFATE (325 MG) 325 MG/TAB TABLET PO SCH (16:53)
[2024-12-11] MEDS: CITRIC ACID/SODIUM CITRATE (BICITRA)15 ML UDC PO SCH (16:53)
[2024-12-11] MEDS: BLOOD SUGAR DIAGNOSTIC 1 EACH STRIP VI SCH (17:24)
[2024-12-11] MEDS: INSULIN REGULAR, HUMAN 100 UNIT/ML 3 ML VIAL SQ PRN (17:25)
[2024-12-11 20:00] VITALS: BP 131/45; TEMP 97.3; O2SAT 99
[2024-12-11] MEDS: METOPROLOL TARTRATE 50 MG TABLET PO SCH (21:00)
[2024-12-11] MEDS: HEPARIN SODIUM, PORCINE 5000 UNITS/1 ML VIAL SQ SCH (21:00)
[2024-12-11] MEDS: SERTRALINE HCL 25 MG TABLET PO SCH (21:36)
[2024-12-11] MEDS: ATORVASTATIN 40 MG TABLET PO SCH (21:36)
[2024-12-11] MEDS: LATANOPROST EYE DROP 0.005% 2.5 ML BOTTLE EACHEYE SCH (21:37)
[2024-12-11] MEDS: INSULIN GLARGINE, 100 UNIT/ML CARTRIDGE SQ SCH (22:00)
[2024-12-12 06:24] LABS: BASOPHILS # (AUTO) 0.1 K/uL (0.0-0.2); BASOPHILS % (AUTO) 0.8 % (0.0-2.0); EOSINOPHILS # (AUTO) 0.4 K/uL (0.0-0.7); EOSINOPHILS % (AUTO) 6.1 % (0.0-6.0); HEMATOCRIT 29 % (39-51); HEMOGLOBIN 9.8 g/dL (13.5-17.5); LYMPHOCYTES # (AUTO) 1.5 K/uL (0.8-4.8); LYMPHOCYTES % (AUTO) 21.8 % (20.0-44.0); MEAN CORPUSCULAR HEMOGLOBIN 32 PG (26.0-33.0); MEAN CORPUSCULAR HGB CONC 34 g/dl (31.0-36.0); MEAN CORPUSCULAR VOLUME 92 fL (80-96); MONOCYTES # (AUTO) 0.5 K/uL (0.1-1.30); MONOCYTES % (AUTO) 7.8 % (2.0-12.0); NEUTROPHILS # (AUTO) 4.5 K/uL (1.8-8.9); NEUTROPHILS % (AUTO) 63.5 % (43.0-81.0); PLATELET COUNT (AUTO) 172 K/uL (150-450); RED BLOOD CELL COUNT(AUTO) 3.12 MIL/uL (4.5-6.0); RED CELL DISTRIBUTION WIDTH 13.5 % (11.5-15.0)
[2024-12-12 07:00] VITALS: BP 160/66; TEMP 97.5; O2SAT 100
[2024-12-12 07:29] LABS: IRON, SERUM 92 ug/dl (50-175); TOTAL IRON BINDING CAPACITY 234 ug/dl (250-450)
[2024-12-12] MEDS: PANTOPRAZOLE 40 MG TABLET.DR PO SCH (07:31)
[2024-12-12 07:33] LABS: ERYTHROCYTE SEDIMENTATION RATE 22 MM/HR (0-20)
[2024-12-12 07:37] LABS: CALCIUM, SERUM 8.4 mg/dL (8.5-10.1); CARBON DIOXIDE 26 mmol/L (21-32); CHLORIDE 107 mmol/L (98-107); CREATININE 2.2 mg/dL (0.6-1.3); GLUCOSE 187 mg/dL (74-106); MAGNESIUM 1.8 mg/dL (1.8-2.4); PHOSPHORUS 3.2 mg/dL (2.5-4.9); POTASSIUM 4.5 mmol/L (3.5-5.1); SODIUM SERUM 142 mmol/L (136-145); UREA NITROGEN, BLOOD 47 mg/dL (7-18)
[2024-12-12 08:57] LABS: CHOLESTEROL 131 mg/dL (<200); FERRITIN 117 ng/mL (8-388); HDL CHOLESTEROL 34 mg/dL (40-60); LDL 58 mg/dL (0-99); TRIGLYCERIDES 293 mg/dL (30-150)
[2024-12-12] MEDS: FOLIC ACID 1 MG TABLET PO SCH (09:03)
[2024-12-12] MEDS: LINAGLIPTIN 5 MG TABLET PO SCH (09:03)
[2024-12-12] MEDS: CHOLECALCIFEROL 1,000 UNIT TABLET (VIT D3) PO SCH (09:03)
[2024-12-12] MEDS: CEFEPIME 1 GM in IV D5W 50 ML IV SCH (09:12)
[2024-12-12 09:35] LABS: C-REACTIVE PROTEIN < 0.20 mg/dL (0.0-0.30)
[2024-12-12 16:00] VITALS: BP_SYST 146; BP_SYST 149; BP_DIAS 50; BP_DIAS 94; TEMP 97.9; TEMP 98.2; O2SAT 98
[2024-12-12 16:56] VITALS: BP 149/50; TEMP 97.9; O2SAT 100
[2024-12-12 20:00] VITALS: BP 152/67; TEMP 97.5; O2SAT 98
[2024-12-12 20:24] LABS: APPEARANCE,URINE CLEAR (CLEAR); BILIRUBIN,URINE NEGATIVE (NEGATIVE); BLOOD, URINE NEGATIVE Ery/uL (NEGATIVE); COLOR,URINE YELLOW (YELLOW); KETONES,URINE NEGATIVE (NEGATIVE); LEUKOCYTE ESTERASE ,URINE NEGATIVE (NEGATIVE); NITRITE, URINE NEGATIVE (NEGATIVE); PROTEIN,URINE TRACE mg/dl (NEGATIVE); UGLUCOSE 2+ mg/dL (NEGATIVE); UROBILINOGEN,URINE 0.2 EU/dL (0.2)
[2024-12-12 20:49] LABS: CREATININE, URINE 73.4 MG/DL (30.0-125.0); URINE TOTAL PROTEIN 34.4 mg/dL (0-11.9)
[2024-12-12 20:50] LABS: ADD URINE CULTURE NO; BACTERIA,URINE Few /HPF (None Seen); RBC,URINE 0-2 /HPF (0-2); SQUAMOUS EPITHELIAL CELL,UR Few /HPF (None Seen)
[2024-12-12 20:58] LABS: EOSINOPHIL,URINE None Seen
[2024-12-12] MEDS: *INSULIN REGULAR(HUMULIN R)HUM 100 UNIT/ML VIAL SQ PRN (21:41)
[2024-12-13] MEDS ORDERED: VANCOMYCIN 750 MG in IV D5W 250 ML IV SCH
[2024-12-13] MEDS ORDERED: VANCOMYCIN 1 GM in IV D5W 250ml IV SCH
[2024-12-13 07:00] VITALS: BP 123/45; TEMP 97.7; O2SAT 96
[2024-12-13 07:29] LABS: BASOPHILS # (AUTO) 0.1 K/uL (0.0-0.2); BASOPHILS % (AUTO) 0.9 % (0.0-2.0); EOSINOPHILS # (AUTO) 0.4 K/uL (0.0-0.7); EOSINOPHILS % (AUTO) 5.7 % (0.0-6.0); HEMATOCRIT 29 % (39-51); HEMOGLOBIN 9.6 g/dL (13.5-17.5); LYMPHOCYTES # (AUTO) 1.7 K/uL (0.8-4.8); LYMPHOCYTES % (AUTO) 26.7 % (20.0-44.0); MEAN CORPUSCULAR HEMOGLOBIN 31 PG (26.0-33.0); MEAN CORPUSCULAR HGB CONC 34 g/dl (31.0-36.0); MEAN CORPUSCULAR VOLUME 93 fL (80-96); MONOCYTES # (AUTO) 0.4 K/uL (0.1-1.30); MONOCYTES % (AUTO) 6.9 % (2.0-12.0); NEUTROPHILS # (AUTO) 3.9 K/uL (1.8-8.9); NEUTROPHILS % (AUTO) 59.8 % (43.0-81.0); PLATELET COUNT (AUTO) 160 K/uL (150-450); RED BLOOD CELL COUNT(AUTO) 3.08 MIL/uL (4.5-6.0); RED CELL DISTRIBUTION WIDTH 13.7 % (11.5-15.0); WHITE BLOOD COUNT (AUTO) 6.5 K/uL (4.3-11.0)
[2024-12-13 07:54] LABS: CALCIUM, SERUM 8.8 mg/dL (8.5-10.1); POTASSIUM 4.4 mmol/L (3.5-5.1)
[2024-12-13 08:16] LABS: ALBUMIN 3.1 g/dL (3.4-5.0); BILIRUBIN,TOTAL 0.6 mg/dL (0.2-1.0); POTASSIUM 4.4 mmol/L (3.5-5.1); TOTAL PROTEIN, SERUM 7.1 g/dL (6.4-8.2)
[2024-12-13 16:00] VITALS: BP 134/43; TEMP 98.1; O2SAT 98
[2024-12-13 20:00] VITALS: BP 135/44; TEMP 97.5; O2SAT 99
[2024-12-14 07:00] VITALS: BP 138/46; TEMP 97.9; O2SAT 95
[2024-12-14 08:10] LABS: PTH, INTACT 24 pg/mL (15-65)
[2024-12-14 08:11] VITALS: BP 138/46
[2024-12-14 09:42] LABS: CALCIUM, SERUM 8.9 mg/dL (8.5-10.1); POTASSIUM 4.3 mmol/L (3.5-5.1)
[2024-12-15 13:07] LABS: *SPE A/G RATIO 0.9 (0.7-1.7); *SPE ALBUMIN 3.1 g/dL (2.9-4.4); *SPE ALPHA-1-GLOBULIN 0.2 g/dL (0.0-0.4); *SPE ALPHA-2-GLOBULIN 0.7 g/dL (0.4-1.0); *SPE BETA GLOBULIN 0.9 g/dL (0.7-1.3); *SPE GLOBULIN, TOTAL 3.3 g/dL (2.2-3.9); *SPE M-SPIKE 0.6 g/dL (Not Observed); *SPE PROTEIN TOTAL 6.4 g/dL (6.0-8.5); *SPEGAMMA GLOBULIN 1.5 g/dL (0.4-1.8)
== END 2024-12-14 13:30 | DRG 637 ==
LOC: ER 11:55 → MED 13:10
PROVIDERS: ADMIT Nurse Practitioner Family
DX: E11.69 Type 2 diabetes mellitus with other specified complication (principal); G93.41 Metabolic encephalopathy; E87.1 Hypo-osmolality and hyponatremia; M86.672 Other chronic osteomyelitis, left ankle and foot; E11.621 Type 2 diabetes mellitus with foot ulcer; N18.4 Chronic kidney disease, stage 4 (severe); N17.9 Acute kidney failure, unspecified; E11.65 Type 2 diabetes mellitus with hyperglycemia; D64.9 Anemia, unspecified; E11.22 Type 2 diabetes mellitus with diabetic chronic kidney disease; E11.40 Type 2 diabetes mellitus with diabetic neuropathy, unspecified; E78.5 Hyperlipidemia, unspecified; F32.9 Major depressive disorder, single episode, unspecified; I25.10 Atherosclerotic heart disease of native coronary artery without angina pectoris; Z79.82 Long term (current) use of aspirin; Z79.84 Long term (current) use of oral hypoglycemic drugs; F03.90 Unspecified dementia, unspecified severity, without behavioral disturbance, psychotic disturbance, mood disturbance, and anxiety; D63.8 Anemia in other chronic diseases classified elsewhere; Z89.422 Acquired absence of other left toe(s); E83.9 Disorder of mineral metabolism, unspecified; E11.51 Type 2 diabetes mellitus with diabetic peripheral angiopathy without gangrene; I12.9 Hypertensive chronic kidney disease with stage 1 through stage 4 chronic kidney disease, or unspecified chronic kidney disease; L97.529 Non-pressure chronic ulcer of other part of left foot with unspecified severity; Z79.4 Long term (current) use of insulin; Z89.421 Acquired absence of other right toe(s)
CPT/HCPCS: 36415; 71045-TC; 73630-TC; 76770-TC; 80048-TC; 80053-TC; 80061-TC; 80076-TC; 81001; 82550-TC; 82570-TC; 82607-TC; 82728-TC; 82962-TC; 83540-TC; 83605-TC; 83735-TC; 83970; 84100-TC; 84155; 84165; 84300-TC; 84439-TC; 84443-TC; 85025-TC; 85652-TC; 85730-TC; 86140-TC; 87040-TC; 87081-TC; A4223; G0378; J0692; J1644; J1815; J3370; J3371; J7030; J7060

== ENCOUNTER 2025-04-19 22:27 | Inpatient (IN) | payer MEDICARE, OTHER ==
[~2025-04-19] VITALS: Ht 177.8 cm; Wt 77.1 kg
[~2025-04-19 22:27] MED LIST changes: -ACET-868 PO; -ASCO-340 PO; +CRAN300T PO; -CRAN425C6 PO; +FERR325T28 PO; +FOLI0.8T3 PO; -METO25TA6 PO; +METO50TA16 PO; -MULT-447 PO; -NUT.237L67 PO; -PETR113O TP; +SERT25TA5 PO; -SERT50TA PO; -[UNRECOGNIZED DRUG - OTHER] TP
[2025-04-19] MEDS ORDERED: ONDANSETRON HCL/PF 4 MG/2 ML VIAL ONE (23:12)
[2025-04-19] MEDS ORDERED: PANTOPRAZOLE 40 MG VIAL ONE (23:12)
[2025-04-19] MEDS: IV NS 0.9% 500 ML BAG IV ONE (23:23)
[2025-04-19] MEDS: ONDANSETRON HCL/PF 4 MG/2 ML VIAL IVP ONE (23:23)
[2025-04-19] MEDS: PANTOPRAZOLE 40 MG VIAL IV ONE (23:23)
[2025-04-19 23:40] LABS: PLATELET COUNT (AUTO) 186 K/uL (150-450); RED BLOOD CELL COUNT(AUTO) 2.98 MIL/uL (4.5-6.0); RED CELL DISTRIBUTION WIDTH 14.9 % (11.5-15.0); WHITE BLOOD COUNT (AUTO) 8.8 K/uL (4.3-11.0)
[2025-04-19 23:51] LABS: INR 1.04 (0.91-1.10)
[2025-04-19 23:57] LABS: CALCIUM, SERUM 9.1 mg/dL (8.5-10.1); CREATININE 3.5 mg/dL (0.6-1.3); SODIUM SERUM 143 mmol/L (136-145); UREA NITROGEN, BLOOD 33 mg/dL (7-18)
[2025-04-20 00:03] LABS: ASPARTATE AMINOTRANSFERASE 22 U/L (15-37); TOTAL PROTEIN, SERUM 7.4 g/dL (6.4-8.2)
[2025-04-20] MEDS ORDERED: ACETAMINOPHEN 325 MG TABLET PO PRN (01:00)
[2025-04-20] MEDS ORDERED: ONDANSETRON HCL/PF 4 MG/2 ML VIAL IVP PRN (01:00)
[2025-04-20] MEDS ORDERED: DEXTROSE 50%-WATER 50 ML DISP.SYRIN IV PRN (01:00)
[2025-04-20] MEDS ORDERED: MAGNESIUM HYDROXIDE 30 ML UDC PO PRN (01:00)
[2025-04-20] MEDS ORDERED: MAG HYDROX/AL HYDROX/SIMETH 30 ML UDC PO PRN (01:00)
[2025-04-20] MEDS ORDERED: Z GUARD REMEDY 4 OZ OINT TP PRN (01:00)
[2025-04-20 03:00] VITALS: BP 141/59; TEMP 97.9; O2SAT 100
[2025-04-20] MEDS ORDERED: DOCUSATE SODIUM 100 MG CAPSULE PO PRN (03:00)
[2025-04-20] MEDS: IV NS 0.9% 1,000 ML IV PRN (03:03)
[2025-04-20 03:15] VITALS: BP 141/59; TEMP 97.9; O2SAT 100
[2025-04-20] MEDS: IV D5/0.45 NACL 1,000 ML IV PRN (03:58)
[2025-04-20 06:06] LABS: APPEARANCE,URINE CLEAR (CLEAR); BLOOD, URINE TRACE-INTA Ery/uL (NEGATIVE); LEUKOCYTE ESTERASE ,URINE NEGATIVE (NEGATIVE); NITRITE, URINE NEGATIVE (NEGATIVE); UGLUCOSE NEGATIVE (NEGATIVE)
[2025-04-20 06:18] LABS: ADD URINE CULTURE NO; SQUAMOUS EPITHELIAL CELL,UR 0-2 /HPF (None Seen)
[2025-04-20] MEDS: INSULIN REGULAR, HUMAN 100 UNIT/ML 3 ML VIAL SQ PRN (06:33)
[2025-04-20] MEDS: BLOOD SUGAR DIAGNOSTIC 1 EACH STRIP IN SCH (06:33)
[2025-04-20 08:22] VITALS: BP 150/62; TEMP 97.5; O2SAT 98
[2025-04-20] MEDS: CITRIC ACID/SODIUM CITRATE (BICITRA)15 ML UDC PO SCH (08:32)
[2025-04-20] MEDS: FERROUS SULFATE (325 MG) 325 MG/TAB TABLET PO SCH (08:32)
[2025-04-20] MEDS: CHOLECALCIFEROL 1,000 UNIT TABLET (VIT D3) PO SCH (08:33)
[2025-04-20] MEDS: FOLIC ACID 1 MG TABLET PO SCH (08:33)
[2025-04-20] MEDS: METOPROLOL TARTRATE 50 MG TABLET PO SCH (08:33)
[2025-04-20] MEDS: LINAGLIPTIN 5 MG TABLET PO SCH (08:33)
[2025-04-20] MEDS: PANTOPRAZOLE 40 MG VIAL IV SCH (09:08)
[2025-04-20 11:40] LABS: PLATELET COUNT (AUTO) 165 K/uL (150-450); RED BLOOD CELL COUNT(AUTO) 2.79 MIL/uL (4.5-6.0); RED CELL DISTRIBUTION WIDTH 14.9 % (11.5-15.0); WHITE BLOOD COUNT (AUTO) 7.9 K/uL (4.3-11.0)
[2025-04-20 11:51] LABS: ASPARTATE AMINOTRANSFERASE 17.0 U/L (15-37); CALCIUM, SERUM 8.7 mg/dL (8.5-10.1); CREATININE 2.9 mg/dL (0.6-1.3); SODIUM SERUM 142.0 mmol/L (136-145); TOTAL PROTEIN, SERUM 6.9 g/dL (6.4-8.2); UREA NITROGEN, BLOOD 30.0 mg/dL (7-18)
[2025-04-20 15:00] VITALS: BP 134/40; TEMP 97.5; O2SAT 98
[2025-04-20 20:00] VITALS: BP_SYST 104; BP_SYST 109; BP_DIAS 68; TEMP 98.1; O2SAT 99
[2025-04-20] MEDS: LATANOPROST EYE DROP 0.005% 2.5 ML BOTTLE EACHEYE SCH (21:00)
[2025-04-20] MEDS: ATORVASTATIN 40 MG TABLET PO SCH (21:02)
[2025-04-20] MEDS: SERTRALINE HCL 25 MG TABLET PO SCH (21:03)
[2025-04-21 07:02] LABS: INR 1.04 (0.91-1.10)
[2025-04-21 07:04] LABS: PLATELET COUNT (AUTO) 173 K/uL (150-450); RED BLOOD CELL COUNT(AUTO) 2.61 MIL/uL (4.5-6.0); RED CELL DISTRIBUTION WIDTH 14.5 % (11.5-15.0); WHITE BLOOD COUNT (AUTO) 6.2 K/uL (4.3-11.0)
[2025-04-21 07:05] LABS: CREATINE KINASE, TOTAL 33.0 U/L (39-308)
[2025-04-21 07:18] LABS: ASPARTATE AMINOTRANSFERASE 17.0 U/L (15-37); CALCIUM, SERUM 8.6 mg/dL (8.5-10.1); CREATININE 2.2 mg/dL (0.6-1.3); PHOSPHORUS 3.5 mg/dL (2.5-4.9); SODIUM SERUM 140.0 mmol/L (136-145); TOTAL PROTEIN, SERUM 6.6 g/dL (6.4-8.2); UREA NITROGEN, BLOOD 23.0 mg/dL (7-18)
[2025-04-21 08:00] VITALS: BP 150/70; TEMP 97.7; O2SAT 99
[2025-04-21 16:00] VITALS: BP 165/53; TEMP 97.9; O2SAT 97
[2025-04-21 20:00] VITALS: BP 130/60; TEMP 98.1; O2SAT 99
[2025-04-22 06:48] LABS: PLATELET COUNT (AUTO) 169 K/uL (150-450); RED BLOOD CELL COUNT(AUTO) 2.48 MIL/uL (4.5-6.0); RED CELL DISTRIBUTION WIDTH 14.1 % (11.5-15.0); WHITE BLOOD COUNT (AUTO) 6.3 K/uL (4.3-11.0)
[2025-04-22 07:04] LABS: CALCIUM, SERUM 8.4 mg/dL (8.5-10.1); CREATININE 1.8 mg/dL (0.6-1.3); PHOSPHORUS 3.3 mg/dL (2.5-4.9); SODIUM SERUM 138.0 mmol/L (136-145); UREA NITROGEN, BLOOD 16.0 mg/dL (7-18)
[2025-04-22 08:00] VITALS: BP 95/51; TEMP 97.9; O2SAT 95
[2025-04-22] MEDS: POTASSIUM CHLORIDE 20 MEQ TAB.PRT.SR PO ONE (08:54)
[2025-04-22] MEDS: POTASSIUM CHLORIDE 20 MEQ TAB.PRT.SR PO SCH (10:02)
[2025-04-22 10:09] LABS: PTH, INTACT 37 pg/mL (15-65)
[2025-04-22] MEDS: IV NS 0.9% 1,000 ML IV SCH (11:10)
[2025-04-22 13:03] LABS: IRON, SERUM 53 ug/dl (50-175)
[2025-04-22 15:00] VITALS: BP 114/78; TEMP 98.2; O2SAT 97
[2025-04-22 20:00] VITALS: BP 150/69; TEMP 99; O2SAT 98
[2025-04-23 07:50] LABS: PLATELET COUNT (AUTO) 193 K/uL (150-450); RED BLOOD CELL COUNT(AUTO) 2.66 MIL/uL (4.5-6.0); RED CELL DISTRIBUTION WIDTH 14.3 % (11.5-15.0); WHITE BLOOD COUNT (AUTO) 7.8 K/uL (4.3-11.0)
[2025-04-23 08:00] VITALS: BP 108/63; TEMP 98; O2SAT 96
[2025-04-23] MEDS ORDERED: IV NS 0.9% 1,000 ML IV PRN (08:03)
[2025-04-23 08:15] VITALS: BP 108/63
[2025-04-23 08:22] LABS: CALCIUM, SERUM 8.3 mg/dL (8.5-10.1); CREATININE 2.0 mg/dL (0.6-1.3); PHOSPHORUS 2.8 mg/dL (2.5-4.9); SODIUM SERUM 141.0 mmol/L (136-145); UREA NITROGEN, BLOOD 14.0 mg/dL (7-18)
== END 2025-04-23 15:50 | DRG 381 ==
LOC: ER 22:37 → TELE 04-20 02:28 → MED 04-20 02:35
PROC: 0DB68ZX Excision of Stomach, Via Natural or Artificial Opening Endoscopic, Diagnostic (ICD-10-PCS; principal; 2025-04-22)
DX: K22.70 Barrett's esophagus without dysplasia (principal); G93.49 Other encephalopathy; N18.4 Chronic kidney disease, stage 4 (severe); N17.9 Acute kidney failure, unspecified; K25.4 Chronic or unspecified gastric ulcer with hemorrhage; I12.9 Hypertensive chronic kidney disease with stage 1 through stage 4 chronic kidney disease, or unspecified chronic kidney disease; E11.22 Type 2 diabetes mellitus with diabetic chronic kidney disease; E78.5 Hyperlipidemia, unspecified; I25.10 Atherosclerotic heart disease of native coronary artery without angina pectoris; D64.9 Anemia, unspecified; Z79.84 Long term (current) use of oral hypoglycemic drugs; Z79.4 Long term (current) use of insulin; Z89.422 Acquired absence of other left toe(s); Z89.421 Acquired absence of other right toe(s); E83.89 Other disorders of mineral metabolism; R33.9 Retention of urine, unspecified; K29.71 Gastritis, unspecified, with bleeding; L89.156 Pressure-induced deep tissue damage of sacral region; F01.50 Vascular dementia, unspecified severity, without behavioral disturbance, psychotic disturbance, mood disturbance, and anxiety; I25.2 Old myocardial infarction; F32.A Depression, unspecified
CPT/HCPCS: 36415; 71045-TC; 76770-TC; 80048-TC; 80053-TC; 80076-TC; 81001; 82550-TC; 82728-TC; 82962-TC; 83540-TC; 83690-TC; 83735-TC; 83970; 84100-TC; 84155; 84165; 84484-TC; 85025-TC; 85610-TC; 85730-TC; 86850-TC; 87081-TC; 93307-TC; 97110-TC; 97116-TC; 97530-TC; A4223; G0378; J1815; J2405; J2470; J2704; J3490; J7030; J7040